=== PATIENT | male | born 1970 | race Caucasian/White ===

== ENCOUNTER 2021-06-24 17:55 | Emergency (ER) | payer OTHER ==
[~2021-06-24] VITALS: Ht 172.7 cm; Wt 113.4 kg
[2021-06-24] MEDS ORDERED: ZOLOFT100 MG PO (18:40)
[2021-06-24] MEDS ORDERED: IBU800 MG PO (18:44)
[2021-06-24] MEDS ORDERED: HYDROCHLOROTHIA25 MG PO (18:44)
[2021-06-24] MEDS ORDERED: OMEPRAZOLE20 MG PO (18:45)
[2021-06-24] MEDS ORDERED: ALLOPURINOL100 MG PO (18:45)
[2021-06-24] MEDS ORDERED: LOPID600 MG PO (18:46)
[2021-06-24] MEDS ORDERED: ONDANSETRON ODT8 MG PO (21:19)
== END 2021-06-24 21:59 | disposition home or self-care (01) ==
LOC: ED 17:55
DX: K52.9 Noninfective gastroenteritis and colitis, unspecified (principal); I10 Essential (primary) hypertension; K21.9 Gastro-esophageal reflux disease without esophagitis; M10.9 Gout, unspecified; Z79.899 Other long term (current) drug therapy
CPT/HCPCS: 80053; 81001; 83735; 85025; 96374; 99284-25; A9270; J2405; J7030